=== PATIENT | male | born 1975 | race Two or more races ===

== ENCOUNTER 2017-12-10 10:09 | Emergency (ER) | payer MEDICAID ==
[~2017-12-10] VITALS: Ht 185.4 cm; Wt 102.1 kg
[2017-12-10 10:29] VITALS: BP 146/102
[2017-12-10 10:59] LABS: Basophils # (auto) 0.1 uL; Basophils % (auto) 0.7 % (0.0-2.0); Eosinophils # (auto) 0.2 uL; Eosinophils % (auto) 1.4 % (0.0-7.0); Hematocrit 44.8 % (41.0-53.0); Hemoglobin 15.5 g/dL (13.5-17.5); Lymphocytes # (auto) 3.1 uL; Lymphocytes % (auto) 20.2 % (10.0-50.0); Mean Corpuscular Hemoglobin 31.7 pg (28.0-32.0); Mean Corpuscular Hgb Conc. 34.5 g/dL (32.0-36.0); Mean Corpuscular Volume 92.1 fL (80.0-100.0); Monocytes # (auto) 1.2 uL; Monocytes % (auto) 7.6 % (0.0-12.0); Neutrophils # (auto) 10.6 uL; Neutrophils % (auto) 70.1 % (37.0-80.0); Platelet Count (auto) 275 10^3/uL (140-450); Red Blood Cells 4.87 10^6/uL (4.5-5.90); Red Cell Distribution Width 13.3 % (11.8-14.3); White Blood Cell 15.1 10^3/uL (4.4-10.8)
[2017-12-10] MEDS ORDERED: KETOROLAC TROMETH 60MG/2ML VIAL IM ONE (12:15)
[2017-12-10] MEDS ORDERED: methylPREDNISolone SOD SUCC 125 MG/2 ML VL IM ONE (12:15)
== END 2017-12-10 12:52 | disposition home or self-care (01) ==
LOC: ER 10:09
DX: M10.9 Gout, unspecified (principal); Z88.6 Allergy status to analgesic agent
CPT/HCPCS: 36415; 73610; 73630; 84550; 85025; 96372; 99285; J1885; J2930